=== PATIENT | male | born 1975 | race African-American/Black ===

== ENCOUNTER 2017-06-03 20:46 | Emergency (ER) | payer MEDICAID, OTHER ==
[~2017-06-03] VITALS: Ht 172.7 cm; Wt 124.0 kg
[2017-06-04] MEDS ORDERED: KETOROLAC 30MG/ML VIAL IV ONE (02:00)
[2017-06-04 03:21] VITALS: BP 108/71
== END 2017-06-04 03:21 | disposition home or self-care (01) ==
LOC: ER 20:46
DX: M54.12 Radiculopathy, cervical region (principal); M54.6 Pain in thoracic spine
CPT/HCPCS: 96374; 99284; J1885

== ENCOUNTER 2017-06-07 07:54 | Emergency (ER) | payer MEDICAID ==
[~2017-06-07] VITALS: Ht 172.7 cm; Wt 122.0 kg
[2017-06-07] MEDS ORDERED: ACETAMINOPHEN 325MG TABLET PO STA (10:24)
[2017-06-07] MEDS ORDERED: KETOROLAC 30MG/ML VIAL IM STA (10:24)
[2017-06-07 10:45] VITALS: BP 117/84
== END 2017-06-07 10:50 | disposition home or self-care (01) ==
LOC: ER 10:34
DX: M54.12 Radiculopathy, cervical region (principal); I10 Essential (primary) hypertension; M54.30 Sciatica, unspecified side; F17.210 Nicotine dependence, cigarettes, uncomplicated
CPT/HCPCS: 96372; 99283; J1885; Z7610